=== PATIENT | female | born 1960 | race Caucasian/White ===

== ENCOUNTER 2019-01-19 09:29 | Emergency (ER) | payer BC, OTHER, SELFPAY ==
--- NOTE | 2019-01-19 10:41 | EDPHYS ---
Physician Documentation [facility] Name: Mary Lacy Age: 58 yrs Sex: Female : 1960 Arrival Date: 01/19/2019 Time: 09:31 Bed 18 Private MD: ED Physician Ifeanyi Valero HPI: 01/19 10:39 This 58 yrs old Female presents to ER via Ambulatory with complaints of Rash. pm1 10:39 The patient's rash thought to be caused by poison erin. The rash is located on the left pm1 arm and right arm and face. The rash can be described as raised. 10:39 Onset: The symptoms/episode began/occurred 3 day(s) ago. Associated signs and symptoms: pm1 Pertinent positives: itching, Pertinent negatives: fever, swelling of lips, swelling of throat, swelling of tongue, wheezing, shortness of breath, chest pain. Severity of symptoms: in the emergency department the symptoms are worse. Treatment given at home: Benadryl. The patient has not experienced similar symptoms in the past. The patient has not recently seen a physician, and does not have an established primary care provider. Historical: - Allergies: 10:03 No Known Allergies; ss - Home Meds: 10:03 None [Active]; ss - PMHx: 10:03 Hypertension; ss - PSHx: 10:03 None; ss - Immunization history:: Adult Immunizations up to date. - Social history:: Smoking status: Patient/guardian denies using tobacco, the patient reports quitting approximately 8 years ago. - Ebola Screening: : Patient denies exposure to infectious person Patient denies travel to an Ebola-affected area in the 21 days before illness onset. ROS: 10:39 Constitutional: Negative for fever, chills, and weight loss, Eyes: Negative for injury, pm1 pain, redness, and discharge, ENT: Negative for injury, pain, and discharge, Neck: Negative for injury, pain, and swelling, Cardiovascular: Negative for chest pain, palpitations, and edema, Respiratory: Negative for shortness of breath, cough, wheezing, and pleuritic chest pain, Abdomen/GI: Negative for abdominal pain, nausea, vomiting, diarrhea, and constipation, Back: Negative for injury and pain, MS/Extremity: Negative for injury and deformity. 10:39 Neuro: Negative for headache, weakness, numbness, tingling, and seizure. 10:39 Skin: Positive for rash, of the right arm and face and left arm. Exam: 10:39 Constitutional: This is a well developed, well nourished patient who is awake, alert, pm1 and in no acute distress. Head/Face: Normocephalic, atraumatic. Eyes: Pupils equal round and reactive to light, extra-ocular motions intact. Lids and lashes normal. Conjunctiva and sclera are non-icteric and not injected. Cornea within normal limits. Periorbital areas with no swelling, redness, or edema. ENT: Nares patent. No nasal discharge, no septal abnormalities noted. Tympanic membranes are normal and external auditory canals are clear. Oropharynx with no redness, swelling, or masses, exudates, or evidence of obstruction, uvula midline. Mucous membranes moist. Neck: Trachea midline, no thyromegaly or masses palpated, and no cervical lymphadenopathy. Supple, full range of motion without nuchal rigidity, or vertebral point tenderness. No Meningismus. Chest/axilla: Normal chest wall appearance and motion. Nontender with no deformity. No lesions are appreciated. Cardiovascular: Regular rate and rhythm with a normal S1 and S2. No gallops, murmurs, or rubs. Normal PMI, no JVD. No pulse deficits. Respiratory: Lungs have equal breath sounds bilaterally, clear to auscultation and percussion. No rales, rhonchi or wheezes noted. No increased work of breathing, no retractions or nasal flaring. Back: No spinal tenderness. No costovertebral tenderness. Full range of motion. 10:39 Skin: Appearance: normal except for affected area, consistent with contact dermatitis, on the right cheek, left cheek and chin and left arm and right arm. 10:39 Neuro: Orientation: is normal, Motor: is normal, moves all fours, Gait: is steady, at a normal pace, without difficulty. Vital Signs: 10:03 BP 213 / 81; Pulse 80; Resp 16; Temp 98.0(O); Pulse Ox 97% on R/A; Weight 77.11 kg; ss Height 5 ft. 2 in. (157.48 cm); Pain 8/10; 10:03 Body Mass Index 31.09 (77.11 kg, 157.48 cm) MDM: 10:08 Patient medically screened. pm1 10:39 Data reviewed: vital signs. Data interpreted: Pulse oximetry: on room air is 97 %. pm1 Interpretation: normal. Counseling: I had a detailed discussion with the patient and/or guardian regarding: the historical points, exam findings, and any diagnostic results supporting the discharge/admit diagnosis, the need for outpatient follow up, to return to the emergency department if symptoms worsen or persist or if there are any questions or concerns that arise at home. Administered Medications: 10:57 Drug: Decadron 10 mg Route: IM; Site: right gluteus; sv 11:27 Follow up: Response: No adverse reaction sv Disposition: 14:11 Co-signature as Attending Physician, Ifeanyi Valero MD. rn Disposition: 01/19/19 10:41 Discharged to Home. Impression: Irritant contact dermatitis. - Condition is Stable. - Discharge Instructions: Poison Erin Dermatitis. - Prescriptions for Medrol (Carloz) 4 mg Oral Tablets, Dose Pack - take 1 tablet by ORAL route as directed - follow package instructions; 1 packet. Bactrim DS 800- 160 mg Oral Tablet - take 1 tablet by ORAL route every 12 hours for 10 days; 20 tablet. - Work release form, Medication Reconciliation Form, Thank You Letter, Antibiotic Education, Prescription Opioid Use form. - Follow up: Emergency Department; When: As needed; Reason: Worsening of condition. Follow up: Private Physician; When: 2 - 3 days; Reason: Recheck today's complaints, Continuance of care, Re-evaluation by your physician. - Problem is new. - Symptoms have improved. Signatures: Kathie Lozano RN RN sv Nieto, Roman, MD MD rn Smirch, Shelby, RN RN ss Marinas, Patrick, NP ENDODONTIST pm1 Corrections: (The following items were deleted from the chart) 11:29 10:41 01/19/2019 10:41 Discharged to Home. Impression: Irritant contact dermatitis. sv Condition is Stable. Forms are Medication Reconciliation Form, Thank You Letter, Antibiotic Education, Prescription Opioid Use. Follow up: Emergency Department; When: As needed; Reason: Worsening of condition. Follow up: Private Physician; When: 2 - 3 days; Reason: Recheck today's complaints, Continuance of care, Re-evaluation by your physician. Problem is new. Symptoms have improved. pm1
--- NOTE | 2019-01-19 10:41 | ER ---
Nurse's Notes [facility] Name: Mary Lacy Age: 58 yrs Sex: Female : 1960 Arrival Date: 01/19/2019 Time: 09:31 Bed 18 Private MD: Diagnosis: Irritant contact dermatitis Presentation: 01/19 09:58 Presenting complaint: Patient states: Redness, swelling and itching to bilateral arms, ss face that began 3 days ago. Pt states, "I have poison ALETHA all around my house.". Transition of care: patient was not received from another setting of care. Onset of symptoms was December 17, 2018. Risk Assessment: Do you want to hurt yourself or someone else? Patient reports no desire to harm self or others. Initial Sepsis Screen: Does the patient have a suspected source of infection? No. Patient's initial sepsis screen is negative. Initial Sepsis Screen: Does the patient meet any 2 criteria? No. Patient's initial sepsis screen is negative. Care prior to arrival: None. 09:58 Method Of Arrival: Ambulatory ss 09:58 Acuity: IBIS 3 ss Historical: - Allergies: 10:03 No Known Allergies; ss - Home Meds: 10:03 None [Active]; ss - PMHx: 10:03 Hypertension; ss - PSHx: 10:03 None; ss - Immunization history:: Adult Immunizations up to date. - Social history:: Smoking status: Patient/guardian denies using tobacco, the patient reports quitting approximately 8 years ago. - Ebola Screening: : Patient denies exposure to infectious person Patient denies travel to an Ebola-affected area in the 21 days before illness onset. Screenin:50 Abuse screen: Denies threats or abuse. Denies injuries from another. Nutritional sv screening: No deficits noted. Tuberculosis screening: No symptoms or risk factors identified. Fall Risk None identified. Assessment: 10:50 General: Appears in no apparent distress. uncomfortable, well developed, Behavior is sv calm, cooperative, appropriate for age. Pain: Complains of pain in face, right arm and left arm Pain currently is 8 out of 10 on a pain scale. Quality of pain is described as itching. Neuro: Level of Consciousness is awake, alert, obeys commands, Oriented to person, place, time, situation, Gait is steady. Respiratory: Airway is patent Respiratory effort is even, unlabored, Respiratory pattern is regular, symmetrical. Derm: Skin is pink, warm \\T\\ dry. Rash noted that is itchy, red, raised, on face, right arm and left arm. 11:00 Reassessment: Pt waiting for IM shot time before discharge. sv 11:28 Reassessment: Patient appears in no apparent distress at this time. No changes from sv previously documented assessment. Patient and/or family updated on plan of care and expected duration. Pain level reassessed. Patient is alert, oriented x 3, equal unlabored respirations, skin warm/dry/pink. Vital Signs: 10:03 BP 213 / 81; Pulse 80; Resp 16; Temp 98.0(O); Pulse Ox 97% on R/A; Weight 77.11 kg; ss Height 5 ft. 2 in. (157.48 cm); Pain 8/10; 10:03 Body Mass Index 31.09 (77.11 kg, 157.48 cm) ED Course: 09:31 Patient arrived in ED. as 10:02 Triage completed. ss 10:03 Arm band placed on right wrist. ss 10:08 Doug Cosme NP is PHCP. pm1 10:08 Ifeanyi Valero MD is Attending Physician. pm1 10:27 Kathie Lozano RN is Primary Nurse. sv 10:50 Patient has correct armband on for positive identification. Bed in low position. Call sv light in reach. Adult w/ patient. Door closed. Head of bed elevated. 11:28 No provider procedures requiring assistance completed. Patient did not have IV access sv during this emergency room visit. Administered Medications: 10:57 Drug: Decadron 10 mg Route: IM; Site: right gluteus; sv 11:27 Follow up: Response: No adverse reaction sv Outcome: 10:41 Discharge ordered by MD. pm1 11:28 Discharged to home ambulatory, with friend. sv 11:28 Condition: stable 11:28 Discharge instructions given to patient, Instructed on discharge instructions, follow up and referral plans. medication usage, Demonstrated understanding of instructions, follow-up care, medications, Prescriptions given X 2. 11:29 Patient left the ED. sv Signatures: Kathie Lozano RN RN sv Martinez, Amelia as Smirch, Shelby, RN RN Marinas, Doug, ACCOUNTS PAYABLE SUPERVISOR ACCOUNTS PAYABLE SUPERVISOR pm1
[2019-01-19] MEDS ORDERED: dexAMETHasone 10 MG/ML VIAL ONE (10:53)
[2019-01-19 11:40] VITALS: BP 213/81; TEMP 98; O2SAT 97
== END 2019-01-19 11:29 | disposition home or self-care (01) ==
LOC: ER 09:29
DX: L24.9 Irritant contact dermatitis, unspecified cause (principal)
CPT/HCPCS: 96372; 99283; J1100

== ENCOUNTER 2019-03-08 15:57 | Emergency (ER) | payer OTHER ==
--- NOTE | 2019-03-08 16:35 | EDPHYS ---
Physician Documentation [facility] Name: Mary Lacy Age: 58 yrs Sex: Female : 1960 Arrival Date: 03/08/2019 Time: 15:58 Bed 8 Private MD: ED Physician Darwin Ross HPI: 03/09 12:38 This 58 yrs old Female presents to ER via Ambulatory with complaints of kdr Foreign Body In Throat - food. 12:38 The patient or guardian reports the patient has a suspected foreign body, of the kdr throat. The reported likely foreign body is a piece of metal. Onset: The symptoms/episode began/occurred acutely, suddenly, just prior to arrival. Current symptoms: Still has sensation of FB in esophagus. Treatment Prior to Arrival: none. The patient has experienced similar episodes in the past, a few times. The patient has not recently seen a physician, Had to see GI for a prior similar episode. Historical: - Allergies: 03/08 16:11 No Known Allergies; ss - PMHx: 16:11 Hypertension; ss - PSHx: 16:11 None; ss - Immunization history:: Adult Immunizations up to date. - Coronavirus screen:: The patient has NOT traveled to [place], [place], or [place] in the past 14 days. Proceed with normal triage process as indicated. - Social history:: Smoking status: Patient denies any tobacco usage or history of. - Ebola Screening: : Patient denies exposure to infectious person Patient denies travel to an Ebola-affected area in the 21 days before illness onset. ROS: 03/09 12:38 Constitutional: Negative for fever, chills, and weight loss, Eyes: Negative for injury, kdr pain, redness, and discharge, ENT: Negative for injury, pain, and discharge, Neck: Negative for injury, pain, and swelling, Cardiovascular: Negative for chest pain, palpitations, and edema, Respiratory: Negative for shortness of breath, cough, wheezing, and pleuritic chest pain, Abdomen/GI: Negative for abdominal pain, nausea, vomiting, diarrhea, and constipation, Back: Negative for injury and pain, : Negative for injury, bleeding, discharge, and swelling, MS/Extremity: Negative for injury and deformity, Skin: Negative for injury, rash, and discoloration, Neuro: Negative for headache, weakness, numbness, tingling, and seizure activity. Psych: Negative for depression, anxiety, suicide ideation, homicidal ideation, and hallucinations, Allergy/Immunology: Negative for hives, rash, and allergies, Endocrine: Negative for neck swelling, polydipsia, polyuria, polyphagia, and marked weight changes, Hematologic/Lymphatic: Negative for swollen nodes, abnormal bleeding, and unusual bruising. Exam: 12:38 Constitutional: This is a well developed, well nourished patient who is awake, alert, kdr and in no acute distress despite the sensation of a FB in her lower esophagus. Head/Face: Normocephalic, atraumatic. Eyes: Pupils equal round and reactive to light, extra-ocular motions intact. Lids and lashes normal. Conjunctiva and sclera are non-icteric and not injected. Cornea within normal limits. Periorbital areas with no swelling, redness, or edema. Neck: Trachea midline, no thyromegaly or masses palpated, and no cervical lymphadenopathy. Supple, full range of motion without nuchal rigidity, or vertebral point tenderness. No Meningismus. Chest/axilla: Normal chest wall appearance and motion. Nontender with no deformity. No lesions are appreciated. Cardiovascular: Regular rate and rhythm with a normal S1 and S2. No gallops, murmurs, or rubs. Normal PMI, no JVD. No pulse deficits. Respiratory: Lungs have equal breath sounds bilaterally, clear to auscultation and percussion. No rales, rhonchi or wheezes noted. No increased work of breathing, no retractions or nasal flaring. Abdomen/GI: Soft, non-tender, with normal bowel sounds. No distension or tympany. No guarding or rebound. No evidence of tenderness throughout. Back: No spinal tenderness. No costovertebral tenderness. Full range of motion. Skin: Warm, dry with normal turgor. Normal color with no rashes, no lesions, and no evidence of cellulitis. MS/ Extremity: Pulses equal, no cyanosis. Neurovascular intact. Full, normal range of motion. Neuro: Awake and alert, GCS 15, oriented to person, place, time, and situation. Cranial nerves II-XII grossly intact. Motor strength 5/5 in all extremities. Sensory grossly intact. Cerebellar exam normal. Normal gait. Psych: Awake, alert, with orientation to person, place and time. Behavior, mood, and affect are within normal limits. Vital Signs: 03/08 16:11 Pulse 88; Resp 16; Temp 97.1; Pulse Ox 99% on R/A; Weight 74.84 kg; Height 5 ft. 2 in. ss (157.48 cm); Pain 0/10; 16:12 BP 225 / 100; ss 16:11 Body Mass Index 30.18 (74.84 kg, 157.48 cm) MDM: 16:35 Patient medically screened. kdr 03/09 12:38 Data reviewed: vital signs, nurses notes. Counseling: I had a detailed discussion with kdr the patient and/or guardian regarding: the historical points, exam findings, and any diagnostic results supporting the discharge/admit diagnosis, the need for outpatient follow up. ED course: The patient made several attempts to drink and hold soda and did not have immediate improvement. On the third try, she cleared the FB and had immediate relief of her s/s. She was subsequently able to pass fluids without difficulty. She was discharged in stable condition. Administered Medications: No medications were administered Disposition: 03/08/19 16:35 Discharged to Home. Impression: Esophageal Foreign Body. - Condition is Stable. - Discharge Instructions: Swallowed Foreign Body, Adult, [id number], Foreign Body. - Medication Reconciliation Form, Thank You Letter form. - Follow up: Private Physician; When: 2 - 3 days; Reason: If symptoms return, Further diagnostic work-up, Recheck today's complaints, Continuance of care, Re-evaluation by your physician. - Problem is new. - Symptoms have improved. - Notes: As we discussed, should this occur again, immediately attempt to disloge the foreign body with the soda as we did in the Emergency Department Signatures: Darwin Ross MD MD [facility] Kena Suggs RN RN Tommy Barbosa RN RN ae4 Corrections: (The following items were deleted from the chart) 03/08 16:49 16:35 03/08/2019 16:35 Discharged to Home. Impression: Esophageal Foreign Body. ae4 Condition is Stable. Forms are Medication Reconciliation Form, Thank You Letter, Antibiotic Education, Prescription Opioid Use. Follow up: Private Physician; When: 2 - 3 days; Reason: If symptoms return, Further diagnostic work-up, Recheck today's complaints, Continuance of care, Re-evaluation by your physician. Problem is new. Symptoms have improved. kdr
--- NOTE | 2019-03-08 16:35 | ER ---
Nurse's Notes [facility] Name: Mary Lacy Age: 58 yrs Sex: Female : 1960 Arrival Date: 03/08/2019 Time: 15:58 Bed 8 Private MD: Diagnosis: Esophageal Foreign Body Presentation: 03/08 16:09 Presenting complaint: Patient states: Swallowed pieces of roast 1.5 hours ago and its ss stuck. "I was able to get a piece up, but I still feel it's stuck.". Transition of care: patient was not received from another setting of care. Onset of symptoms was March 08, 2019. Risk Assessment: Do you want to hurt yourself or someone else? Patient reports no desire to harm self or others. Initial Sepsis Screen: Does the patient meet any 2 criteria? No. Patient's initial sepsis screen is negative. Does the patient have a suspected source of infection? No. Patient's initial sepsis screen is negative. Care prior to arrival: None. 16:09 Method Of Arrival: Ambulatory ss 16:09 Acuity: IBIS 2 ss Historical: - Allergies: 16:11 No Known Allergies; ss - PMHx: 16:11 Hypertension; ss - PSHx: 16:11 None; ss - Immunization history:: Adult Immunizations up to date. - Coronavirus screen:: The patient has NOT traveled to [place], [place], or [place] in the past 14 days. Proceed with normal triage process as indicated. - Social history:: Smoking status: Patient denies any tobacco usage or history of. - Ebola Screening: : Patient denies exposure to infectious person Patient denies travel to an Ebola-affected area in the 21 days before illness onset. Screenin:39 Abuse screen: Denies threats or abuse. Nutritional screening: No deficits noted. ae4 Tuberculosis screening: No symptoms or risk factors identified. Fall Risk None identified. Assessment: 16:35 Reassessment: Reassessment: Provider at bedside, order to provide carbonated beverage ae4 PO. Patient vomited and spit up mucus and what appeared to be food. Patient states she feels like the piece of roast "went down" . 16:36 General: Appears uncomfortable, slender, Behavior is cooperative, anxious. Pain: ae4 Complains of pain in suprasternal notch. Neuro: Level of Consciousness is awake, alert, obeys commands, Oriented to person, place, time, situation, Appropriate for age. Cardiovascular: Patient's skin is warm and dry. Respiratory: Airway is patent Respiratory effort is even, unlabored, Respiratory pattern is regular. GI: Reports nausea, Feeling as though she has food stuck in her throat and esophagus area. : No signs and/or symptoms were reported regarding the genitourinary system. EENT: No signs and/or symptoms were reported regarding the EENT system. Derm: No signs and/or symptoms reported regarding the dermatologic system. Musculoskeletal: Vital Signs: 16:11 Pulse 88; Resp 16; Temp 97.1; Pulse Ox 99% on R/A; Weight 74.84 kg; Height 5 ft. 2 in. ss (157.48 cm); Pain 0/10; 16:12 BP 225 / 100; ss 16:11 Body Mass Index 30.18 (74.84 kg, 157.48 cm) ED Course: 15:58 Patient arrived in ED. as 16:11 Triage completed. ss 16:11 Arm band placed on left wrist. 16:13 Tommy Barbosa, RN is Primary Nurse. ae4 16:20 Darwin Ross MD is Attending Physician. kdr 16:37 Bed in low position. Call light in reach. Adult w/ patient. ae4 16:48 No provider procedures requiring assistance completed. Patient did not have IV access ae4 during this emergency room visit. Administered Medications: No medications were administered Outcome: 16:35 Discharge ordered by . kdr 16:48 Discharged to home ambulatory. ae4 16:48 Condition: improved 16:48 Discharge instructions given to patient, Instructed on discharge instructions, follow up and referral plans. Demonstrated understanding of instructions. 16:49 Patient left the ED. ae4 Signatures: Darwin Ross MD MD kdr Martinez, Amelia as Smirch, Shelby, RN RN Tommy Barbosa, CM RN ae4 Corrections: (The following items were deleted from the chart) 16:13 16:09 Acuity: IBIS 3 [facility]
[2019-03-08 16:53] VITALS: TEMP 97.1; O2SAT 99
[2019-03-08 16:56] VITALS: BP 225/100
== END 2019-03-08 16:49 | disposition home or self-care (01) ==
LOC: ER 15:57
DX: T18.128A Food in esophagus causing other injury, initial encounter (principal); X58.XXXA Exposure to other specified factors, initial encounter; Y93.9 Activity, unspecified; Y92.9 Unspecified place or not applicable
CPT/HCPCS: 99281

== ENCOUNTER 2024-01-25 11:05 | Emergency (ER) | payer OTHER ==
--- OUTSIDE RECORDS SUMMARY | 2024-01-25 11:10 | XMS REPORT | Continuity of Care Document ---
Author Name Unknown Address [address] [facility] [place] [address] [facility] thconnect Address [address] [facility] [facility] [place] [address] Care Team Providers Care Car Porter Name Role Phone Anais Michaels MD Primary Care Physici an OSMAN BRUNER Attending Clinician Unavailable MD JEANINE Attending Clinician Unavailab le LAB90 Attending Clinician Unavailable STAN BROWN Attending Clinician Unavailab BARRY Sheehan Attending Clinician Unava ilELKE Lennon Attending Clinician Unavailable YOSEPH ROGERS Attending Clinician Unava ilnunu MEDLEY JEFF MARSHA Attending Clinician UnavailFLOR Jenkins Attending Clinician Unavailable XANDER STAPLES Attending Clinician Unavailable ANAIS MICHAELS Attending Clinician Ally vailable Doctor Unassigned, [place] Attending Clinician U Anais Yang MD Attending Clinician Payers Payer Name Policy Type Policy Number Effective Date Expirati on Date Source [facility] ON 9 [id number] 2022 00:00:00 [facility] [id number] 2022 00:00:00 Problems Condition Name Condition Details Condition Category Status Onset Date Resolution Date Last Treatment Date Treating Clinician Comments Source DM type 2 with diabetic mixed hyperlipid emia (multi HCC) DM type 2 with diabetic mixed hyperlipid emia (multi HCC) Disease Active 9-17 00:00: 00 Sri Hamilton - Externa l Mild major depression Mild major depression Disease Active 6-30 00:00: 00 Sri Jamesold - Externa l Asthma (HHS-HCC) Asthma (HHS-HCC) Disease Active 3-28 00:00: 00 Sri Jamesold - Externa l HTN (hypertens ion) HTN (hypertens ion) Disease Active 1- 00:00: 00 [facility] HLD (hyperlipi demia) HLD (hyperlipi demia) Disease Active 02-15 00:00: 00 [facility] Prediabete s Prediabete s Disease Active 02-15 00:00: 00 [facility] Allergies, Adverse Reactions, Alerts Allergy Name Allergy Type Status Severity Reaction(s) Onset Date Inactive Date Treating Clinician Comments Source NO KNOWN ALLERGIE S Drug Class Active [facility] Social History Social Habit Start Date Stop Date Quantity Comments Source History SDOH Alcohol Binge Sri Hamilton - External ASSERTION Not Sri Hamilton - External Gender identity Mariia pena Seybold - External Sexual orientation K elsecheri Seybold - External History of tobacco use Cigarette Smoker Sri bardales - External History SDOH Alcohol Frequency Sri aguilera - External History SDOH Alcohol Std Drinks Sri Jimenes ybcatia - External Alcoholic beverage intake 2023-12-26 00:00:00 2023-12-26 00:00:00 Ex-drinker (finding) Sri Jamesold - External Alcohol intake 2023-05-17 00:00:00 2023-05-17 00:00:00 Ex-drinker (finding) Sri Hamilton - External History of Social function 2022-10-29 00:00:00 2022-10-29 00:00:00 Sri Hamilton - External Alcohol Comment 2022-09-18 00:00:00 2022-09-18 00:00:00 social Sri Hamilton - External Tobacco use and exposure 2022-08-10 00:00:00 2022-08-10 00:00:00 Former smokeless tobacco user Sri Jimeneswinniecatia - External Cigarettes smoked current (pack per day) - Reported 2022-08-10 00:00:00 2022-08-10 00:00:00 Sri Sewinniecatia - External Cigarette pack-years 2022-08-10 00:00:00 2022-08-10 00:00:00 Sri Sewinniecatia - External Tobacco Comment 2022-07-31 00:00:00 2022-07-31 00:00:00 stopped 11 years ago Sri Jimeneswinniecatia - External Sex 2022-03-28 21:28:42 2022-03-28 21:28:42 Female (finding) Sri Sewinniecatia - External Exposure to SARS-CoV-2 (event) 2022-02-05 00:00:00 2022-02-15 08:38:00 Not sure [facility] Sex assigned at 1960 00:00:00 1960 00:00:00 Sri Hamilton - External Smoking Status Start Date Stop Date Source Ex-smoker 2022-08-10 00:00:00 2022-08-10 00:00:00 Tyson rashadcheri Joy - External Medications Ordered Medication Name Filled Medication Name Start Date Stop Date Current Medication? Ordering Clinician Indication Dosage Frequency Signature (SIG) Comments Components Source Cetirizine HCl (ZyrTEC Allergy) 10 MG oral TABLET DISPERSIBLE 2023-02 00:00: 00 Yes [id number] 1{tbl} QD Take 1 tablet by mouth daily. Sri galvez Azithromyci n 250 MG oral Tablet 2023-02 00:00: 00 12-31 05:59 :00 Yes [id number] Take 2 tablets by mouth on day 1 then 1 tablet by mouth daily for 4 days thereafter .. Sri galvez Topiramate 50 MG oral Tablet 2023-02 00:00: 00 Yes [id number] 50mg Q.5D Take 1 tablet by mouth twice daily Sri galvez Trulicity 1.5 MG/0.5ML subcutaneou s Solution Pen-injecto r 2023-02 0-07 00:00: 00 Yes [id number] 3 Q1W inject 1 syringe subcutaneo usly once a week Sri galvez Atorvastati n Calcium 40 MG oral Tablet 2023-02 0-02 00:00: 00 Yes [id number] 40mg take 1 tablet by mouth at bedtime Sri galvez ALBUTEROL HFA 108 (90 Base) MCG/ACT IN AERS 8- 00:00: 00 Yes [id number] 2{puff} Q.25D inhale 2 puffs by mouth every 6 hours as needed for wheezing Sri galvez Indomethaci n 50 MG oral Capsule - 00:00: 00 Yes [id number] Take one tablet po every 8 hours with food for 3 days for gout flares. Reduce dose as symptoms improve. Discontinu e a few days after resolution of clinical signs (usual total duration: 5 to 7 days). Sri galvez Atorvastati n Calcium 40 MG oral Tablet 7- 00:00: 00 Yes [id number] 40mg take 1 tablet by mouth at bedtime Sri galvez hydroCHLORO thiazide 12.5 MG oral Capsule - 00:00: 00 Yes [id number] 12.5mg QD Take 1 capsule by mouth once daily Sri galvez Dulaglutide (Trulicity) 1.5 MG/0.5ML subcutaneou s Solution Pen-injecto r 5- 00:00: 00 Yes [id number] 3 1.5mg Q1W Inject 1.5 mg into the skin once a week. Sri galvez Albuterol HFA 108 (90 Base) MCG/ACT IN AERS 4-24 00:00: 00 Yes [id number] 2{puff} Q.25D Inhale 2 puffs into the lungs every 6 hours as needed for wheezing. Sri galvez Topiramate 50 MG oral Tablet 4-05 00:00: 00 Yes [id number] 50mg Q.5D Take 1 tablet (50 mg total) by mouth 2 times daily. Sri galvez Lisinopril 5 MG oral Tablet 05-15 00:00: 00 Yes [id number] 5mg QD Take 1 tablet by mouth once daily Sri galvez Dulaglutide (Trulicity) 0.75 MG/0.5ML subcutaneou s Solution Pen-injecto r - 00:00: 00 05-16 00:00 :00 No [id number] 3 .75mg Inject 0.75 mg into the skin once a week. Sri galvez Topiramate 50 MG oral Tablet 05-12 00:00: 00 05-16 00:00 :00 No [id number] 50mg Take 1 tablet (50 mg total) by mouth 2 times daily. Sri galvez Trulicity 1.5 MG/0.5ML subcutaneou s Solution Pen-injecto r 04-14 00:00: 00 Yes 1.5mg Inject 1.5 mg into the skin once a week. Sri galvez hydroCHLORO thiazide 12.5 MG oral Capsule 04-11 00:00: 00 Yes [id number] 12.5mg Take 1 capsule by mouth once daily Sri galvez Trulicity 1.5 MG/0.5ML subcutaneou s Solution Pen-injecto r 03-22 00:00: 00 Yes [id number] 3 1.5mg Inject 1.5 mg into the skin once a week. Sri galvez Sertraline HCl 50 MG oral Tablet 03-22 00:00: 00 Yes [id number] 50mg QD Take 1 tablet (50 mg total) by mouth daily. Sri galvez Sertraline HCl 25 MG oral Tablet 2- 00:00: 00 03-22 00:00 :00 No [id number] 25mg Take 1 tablet by mouth once daily Sri galvez Lisinopril 5 MG oral Tablet - 00:00: 00 Yes [id number] 5mg Take 1 tablet (5 mg total) by mouth daily. Sri galvez Topiramate 50 MG oral Tablet 03-13 00:00: 00 Yes [id number] 50mg Take 1 tablet by mouth twice daily Sri galvez Sertraline HCl 50 MG oral Tablet 02-20 00:00: 00 03-22 00:00 :00 No 50mg Take 1 tablet (50 mg total) by mouth daily. Sri galvez Trulicity 0.75 MG/0.5ML subcutaneou s Solution Pen-injecto r 02-19 00:00: 00 Yes [id number] 3 .75mg Inject 0.75 mg into the skin once a week. Sri galvez Lisinopril 5 MG oral Tablet 02-19 00:00: 00 Yes [id number] 5mg Take 1 tablet (5 mg total) by mouth daily. Sri galvez Sertraline HCl 25 MG oral Tablet 02-19 00:00: 00 Yes [id number] 25mg Take 1 tablet (25 mg total) by mouth daily. Sri galvez Topiramate 50 MG oral Tablet 02-13 00:00: 00 Yes [id number] 50mg Take 1 tablet (50 mg total) by mouth 2 times daily. Sri galvez Albuterol HFA 108 (90 Base) MCG/ACT IN AERS 2022-02 00:00: 00 Yes [id number] 2{puff} Q.25D Inhale 2 puffs into the lungs every 6 hours as needed for wheezing. Sri galvez hydroCHLORO thiazide 12.5 MG oral Capsule 2022-02 00:00: 00 Yes [id number] 12.5mg Take 1 capsule (12.5 mg total) by mouth daily. Sri galvez Topiramate 50 MG oral Tablet 2022-02 0 00:00: 00 Yes [id number] 50mg Take 1 tablet (50 mg total) by mouth 2 times daily. Sri galvez Metformin HCl 500 MG oral Tablet 2022-02 0- 00:00: 00 03-22 00:00 :00 No [id number] 3 500mg Take 1 tablet (500 mg total) by mouth in the morning and 1 tablet (500 mg total) in the evening. Take with meals. Sri galvez Topiramate 25 MG oral Tablet 2022-02 0-03 00:00: 00 11-20 00:00 :00 No [id number] 25mg Take 1 tablet by mouth twice daily Sri galvez Metformin HCl 500 MG oral Tablet 9 00:00: 00 11-20 00:00 :00 No [id number] 3 500mg Take 1 tablet (500 mg total) by mouth in the morning and 1 tablet (500 mg total) in the evening. Take with meals. Sri galvez hydroCHLORO thiazide 12.5 MG oral Capsule 10-23 00:00: 00 Yes [id number] 12.5mg Take 1 capsule (12.5 mg total) by mouth daily. Sri galvez Topiramate 25 MG oral Tablet 10-23 00:00: 00 Yes [id number] 25mg Take 1 tablet (25 mg total) by mouth 2 times daily. Sri galvez Albuterol HFA 108 (90 Base) MCG/ACT IN AERS 08-17 00:00: 00 Yes [id number] 2{puff} Q.25D Inhale 2 puffs into the lungs every 6 hours as needed for wheezing Sri galvez Atorvastati n Calcium 40 MG oral Tablet 08-17 00:00: 00 Yes [id number] 40mg Take 1 tablet (40 mg total) by mouth at bedtime Sri galvez LISINOPRIL- HCTZ 10-12.5 MG oral Tablet 08-17 00:00: 00 02-19 00:00 :00 No [id number] 1{tbl} Take 1 tablet by mouth daily Sri galvez Sertraline HCl 50 MG oral Tablet 08-17 00:00: 00 02-19 00:00 :00 No [id number] 50mg Take 1 tablet (50 mg total) by mouth daily Sri galvez hydroCHLORO thiazide 25 MG oral Tablet 08-10 07:53: 54 Yes 25mg Take 1 tablet (25 mg total) by mouth daily 1/2 tablet daily Sri galvez Sertraline HCl 50 MG oral Tablet 08-02 00:00: 00 Yes [id number] Take 1 tablet by mouth once daily Sri galvez Atorvastati n Calcium 40 MG oral Tablet 08-02 00:00: 00 Yes [id number] TAKE 1 TABLET BY MOUTH AT BEDTIME Sri galvez LISINOPRIL- HCTZ 10-12.5 MG oral Tablet 08-02 00:00: 00 Yes [id number] Take 1 tablet by mouth once daily Sri galvez Na Sulfate-K Sulfate-Mg Sulf (SUPREP BOWEL PREP KIT) 17.5-3.13-1 .6 GM/177ML oral Solution 07-31 00:00: 00 Yes [id number] Instructio ns provided to patient. Follow instructio ns provided by provider. Sri galvez Atorvastati n Calcium 40 MG oral Tablet 05-08 00:00: 00 Yes [id number] 40mg Take 1 tablet (40 mg total) by mouth at bedtime Sri galvez LISINOPRIL- HCTZ 10-12.5 MG oral Tablet 05-08 00:00: 00 Yes [id number] 1{tbl} Take 1 tablet by mouth daily Sri galvez Sertraline HCl (Zoloft) 50 MG oral Tablet 05-08 00:00: 00 Yes [id number] 50mg Take 1 tablet (50 mg total) by mouth daily Sri galvez Albuterol HFA 108 (90 Base) MCG/ACT IN AERS 05-08 00:00: 00 Yes [id number] 2{puff} Q.25D Inhale 2 puffs into the lungs every 6 hours as needed for wheezing Sri galvez hydroCHLORO thiazide 25 MG oral Tablet 3-24 00:00: 00 05-08 00:00 :00 No 25mg Take 25 mg by mouth every morning Sri galvez Sertraline HCl 25 MG oral Tablet 2-01 00:00: 00 05-08 00:00 :00 No TAKE 1/2 (ONE-HALF) TABLET BY MOUTH IN THE MORNING Sri galvez hydroCHLORO thiazide 25 mg tablet 1-05 00:00: 00 Yes [id number] 25mg Take 1 tablet by mouth in the morning. [facility] SERTraline 25 mg tablet 02-15 00:00: 00 Yes [id number] 12.5mg Take 0.5 tablets by mouth in the morning. [facility] Atorvastati n Calcium 40 MG oral Tablet 02-15 00:00: 00 05-08 00:00 :00 No 40mg Take 40 mg by mouth at bedtime Sri galvez Immunizations Ordered Immunization Name Filled Immunization Name Date Status Comments Source Influenza Virus Vaccine, Quad, Egg Free 2022-10-10 00:00:00 Completed Sri Hamilton - External Influenza Virus Vaccine, No Preserv, age 6 months and up 2021-11-09 00:00:00 Completed Sri Jamesold - External Influenza Virus Vaccine, No Preserv, age 6 months and up 2021-11-09 00:00:00 Completed Sri Jamesold - External Influenza Virus Vaccine, No Preserv, age 6 months and up 2021-11-09 00:00:00 Completed Sri Jamesold - External Influenza Virus Vaccine, No Preserv, age 6 months and up 2021-11-09 00:00:00 Completed Sri Seybold - External Influenza Virus Vaccine, No Preserv, age 6 months and up 2021-11-09 00:00:00 Completed Sri Jimenesybold - External Influenza Virus Vaccine Quad .5 mL IM 6+ MO 2021-11-09 00:00:00 Completed [facility] Influenza Virus Vaccine Quad .5 mL IM 6+ MO 2021-11-09 00:00:00 Completed [facility] SARS-COV-2 COVID-19 PFIZER VACCINE 2020-12-12 00:00:00 Completed [facility] SARS-COV-2 COVID-19 PFIZER VACCINE 2020-12-12 00:00:00 Completed [facility] SARS-COV-2 COVID-19 PFIZER VACCINE 2020-05-19 00:00:00 Completed [facility] SARS-COV-2 COVID-19 PFIZER VACCINE 2020-05-19 00:00:00 Completed [facility] SARS-COV-2 COVID-19 PFIZER VACCINE 2020-04-27 00:00:00 Completed [facility] SARS-COV-2 COVID-19 PFIZER VACCINE 2020-04-27 00:00:00 Completed [facility] Influenza Virus Vaccine, No Preserv, age 6 months and up Unknown Completed Sri Seybold - External Influenza Virus Vaccine, Quad, Egg Free Unknown Completed Sri Seybold - External Pneumococcal Vaccine, Conjugate 20 Unknown Completed Sri Seybold - External RSV, Arexvy Unknown Completed Sri S eybold - External Influenza Virus Vaccine, No Preserv, age 6 months and up Unknown Completed Sri Seybold - External Influenza Virus Vaccine, Quad, Egg Free Unknown Completed Sri Seybold - External Pneumococcal Vaccine, Conjugate 20 Unknown Completed Sri Seybold - External RSV, Arexvy Unknown Completed Sri S eybold - External Influenza Virus Vaccine, No Preserv, age 6 months and up Unknown Completed Sri Seybold - External Influenza Virus Vaccine, Quad, Egg Free Unknown Completed Sri Seybold - External Pneumococcal Vaccine, Conjugate 20 Unknown Completed Sri Seybold - External RSV, Arexvy Unknown Completed Sri S eybold - External Influenza Virus Vaccine, No Preserv, age 6 months and up Unknown Completed Sri Seybold - External Influenza Virus Vaccine, Quad, Egg Free Unknown Completed Sri Seybold - External Pneumococcal Vaccine, Conjugate 20 Unknown Completed Sri Seybold - External RSV, Arexvy Unknown Completed Sri S eybold - External Influenza Virus Vaccine, No Preserv, age 6 months and up Unknown Completed Sri Seybold - External Influenza Virus Vaccine, Quad, Egg Free Unknown Completed Sri Seybold - External Pneumococcal Vaccine, Conjugate 20 Unknown Completed Sri Seybold - External RSV, Arexvy Unknown Completed Sri penabold - External Influenza Virus Vaccine, No Preserv, age 6 months and up Unknown Completed Sri Jimenesybold - External Influenza Virus Vaccine, Quad, Egg Free Unknown Completed Sri Jimenesybold - External Pneumococcal Vaccine, Conjugate 20 Unknown Completed Sri Jimenesybold - External RSV, Arexvy Unknown Completed Sri penabold - External Influenza Virus Vaccine, Egg Free Unknown Completed Sri Sue bold - External Vital Signs Vital Name Observation Time Observation Value Comments S ource Body height 2023-12-26 15:29:00 160 cm Mariia ey Seybold - External Body weight 2023-12-26 15:29:00 71.215 kg Mariia ey Seybold - External BMI 2023-12-26 15:29:00 27.81 kg/m2 Mariia ey Seybold - External Systolic blood pressure 2023-05-17 15:50:00 124 mm[Hg] Sri Seybo ld - External Diastolic blood pressure 2023-05-17 15:50:00 66 mm[Hg] Sri Seybo ld - External Heart rate 2023-05-17 15:50:00 73 /min Kelse y Seybold - External Body temperature 2023-05-17 15:50:00 35.83 Ann Sri Seybold - External Respiratory rate 2023-05-17 15:50:00 14 /min Sri Seybold - External Body height 2023-05-17 15:50:00 160 cm Mariia ey Seybold - External Body weight 2023-05-17 15:50:00 68.493 kg Mariia ey Seybold - External BMI 2023-05-17 15:50:00 26.75 kg/m2 Mariia ey Seybold - External Systolic blood pressure 2023-03-22 16:21:00 110 mm[Hg] Sri Seybo ld - External Diastolic blood pressure 2023-03-22 16:21:00 72 mm[Hg] Sri Seybo ld - External Heart rate 2023-03-22 16:21:00 86 /min Kelse y Seybold - External Body temperature 2023-03-22 16:21:00 35.89 Ann Sri Seybold - External Respiratory rate 2023-03-22 16:21:00 14 /min Sri Seybold - External Body height 2023-03-22 16:21:00 160 cm Mariia ey Seybold - External Body weight 2023-03-22 16:21:00 72.122 kg Mariia ey Seybold - External BMI 2023-03-22 16:21:00 28.17 kg/m2 Mariia ey Seybold - External Systolic blood pressure 2023-02-19 15:31:00 136 mm[Hg] Sri Seybo ld - External Diastolic blood pressure 2023-02-19 15:31:00 70 mm[Hg] Sri Seybo ld - External Heart rate 2023-02-19 15:31:00 77 /min Kelse y Seybold - External Body temperature 2023-02-19 15:31:00 35.72 Ann Sri Seybold - External Respiratory rate 2023-02-19 15:31:00 14 /min Sri Seybold - External Body height 2023-02-19 15:31:00 160 cm Mariia ey Seybold - External Body weight 2023-02-19 15:31:00 71.215 kg Mariia ey Seybold - External BMI 2023-02-19 15:31:00 27.81 kg/m2 Mariia ey Seybold - External Systolic blood pressure 2022-11-20 14:05:00 124 mm[Hg] Sri Seybo ld - External Diastolic blood pressure 2022-11-20 14:05:00 68 mm[Hg] Sri Seybo ld - External Heart rate 2022-11-20 14:05:00 78 /min Kelse y Seybold - External Body temperature 2022-11-20 14:05:00 35.89 Ann Sri Seybold - External Respiratory rate 2022-11-20 14:05:00 14 /min Sri Seybold - External Body height 2022-11-20 14:05:00 160 cm Mariia ey Seybold - External Body weight 2022-11-20 14:05:00 76.658 kg Mariia ey Seybold - External BMI 2022-11-20 14:05:00 29.94 kg/m2 Mariia ey Seybold - External Systolic blood pressure 2022-10-23 20:15:00 146 mm[Hg] Sri Seybo ld - External Diastolic blood pressure 2022-10-23 20:15:00 80 mm[Hg] Sri Seybo ld - External Heart rate 2022-10-23 20:15:00 82 /min Kelse y Seybold - External Body temperature 2022-10-23 20:15:00 36.56 Ann Sri Seybold - External Respiratory rate 2022-10-23 20:15:00 14 /min Sri Seybold - External Body height 2022-10-23 20:15:00 160 cm Mariia ey Seybold - External Body weight 2022-10-23 20:15:00 80.74 kg Mariia ey Seybold - External BMI 2022-10-23 20:15:00 31.53 kg/m2 Mariia ey Seybold - External Systolic blood pressure 2022-08-10 12:49:00 126 mm[Hg] Sri Seybo ld - External Diastolic blood pressure 2022-08-10 12:49:00 64 mm[Hg] Sri Seybo ld - External Heart rate 2022-08-10 12:49:00 68 /min Kelse y Seybold - External Body temperature 2022-08-10 12:49:00 35.39 Ann Sri Seybold - External Respiratory rate 2022-08-10 12:49:00 14 /min Sri Seybold - External Body height 2022-08-10 12:49:00 160 cm Mariia ey Seybold - External Body weight 2022-08-10 12:49:00 78.472 kg Mariia ey Seybold - External BMI 2022-08-10 12:49:00 30.65 kg/m2 Mariia ey Seybold - External Systolic blood pressure 2022-07-31 20:18:00 130 mm[Hg] Sri Seybo ld - External Diastolic blood pressure 2022-07-31 20:18:00 70 mm[Hg] Sri Seybo ld - External Heart rate 2022-07-31 20:18:00 62 /min Kelse y Seybold - External Body temperature 2022-07-31 20:18:00 36.11 Ann Sri Seybold - External Respiratory rate 2022-07-31 20:18:00 16 /min Sri Seybold - External Body height 2022-07-31 20:18:00 160 cm Mariia ey Seybold - External Body weight 2022-07-31 20:18:00 75.751 kg Mariia ey Seybold - External BMI 2022-07-31 20:18:00 29.58 kg/m2 Mariia ey Seybold - External Systolic blood pressure 2022-05-08 13:38:00 142 mm[Hg] Sri Seybo ld - External Diastolic blood pressure 2022-05-08 13:38:00 84 mm[Hg] Sri Seybo ld - External Heart rate 2022-05-08 13:38:00 77 /min Bruno y Seybold - External Body temperature 2022-05-08 13:38:00 36 Ann Sri Seybold - External Respiratory rate 2022-05-08 13:38:00 14 /min Sri Jimenesybold - External Body height 2022-05-08 13:38:00 160 cm Mariia ey Seybold - External Body weight 2022-05-08 13:38:00 76.204 kg Mariia ey Seybold - External BMI 2022-05-08 13:38:00 29.76 kg/m2 Mariia ey Seybold - External Systolic blood pressure 2022-02-15 14:56:00 178 mm[Hg] [place] [facility] Diastolic blood pressure 2022-02-15 14:56:00 82 mm[Hg] [facility] Heart rate 2022-02-15 14:55:00 70 /min [facility] 2022-02-15 14:55:00 36.89 Ann [facility] Body height 2022-02-15 14:55:00 160 cm [facility] Body weight 2022-02-15 14:55:00 73.483 kg [facility] BMI 2022-02-15 14:55:00 28.70 kg/m2 [facility] Oxygen saturation in Arterial blood by Pulse oximetry 2022-02-15 14:55:00 98 /min [facility] Procedures Procedure Date / Time Performed Performing Clinicia n Source EXTERNAL PROVIDER RECORDS 2022-03-16 06:01:00 Doctor Unassigned, [place] [facility] Encounters Start Date/Time End Date/Time Encounter Type Admission Type Attending [facility] Care Department Encounter ID Source 2024-02-13 09:30:00 2024-02-13 09:30:00 Outpatient OSMAN BRUNER [id number] Sri Joy 2024-01-11 00:00:00 2024-01-11 00:00:00 Outpatient OSMAN BRUNER [id number] Sri Joy 2023-12-30 00:00:00 2023-12-30 00:00:00 Outpatient OSMAN BRUNER [id number] Sri Joy 2023-12-27 00:00:00 2023-12-27 00:00:00 Outpatient MD SRI FELICIANO [id number] Sri Joy 2023-12-26 12:45:00 2023-12-26 12:45:00 Outpatient SRI CARIAS [id number] Sri Joy 2023-12-26 10:45:00 2023-12-26 10:45:00 Outpatient LAB90 SRI CARIAS [id number] Sri Joy 2023-12-26 09:30:00 2023-12-26 09:30:00 Outpatient OSMAN BRUNER [id number] Sri Joy 2023-12-26 00:00:00 2023-12-26 00:00:00 Outpatient OSMAN BRUNER [id number] Sri Joy 2023-12-26 00:00:00 2023-12-26 00:00:00 Outpatient OSMAN BRUNER [id number] Sri winniecatia 2023-12-26 00:00:00 2023-12-26 00:00:00 Outpatient SRI CARIAS [id number] Sri winniecatia 2023-12-26 00:00:00 2023-12-26 00:00:00 Outpatient SRI CARIAS [id number] Sri Hamilton 2023-12-22 00:00:00 2023-12-22 00:00:00 Outpatient HUNDL, OSMAN CARIAS [id number] Sri ybcatia 2023-12-19 11:00:00 2023-12-19 11:00:00 Outpatient SRI CARIAS [id number] Sri ybcatia 2023-12-04 00:00:00 2023-12-04 00:00:00 Outpatient HUNDL, OSMAN CARIAS [id number] Sri Jimenesybcatia 2023-11-17 00:00:00 2023-11-17 00:00:00 Outpatient HUNDL, [facility]AN CARIAS [id number] [facility]23-[facility]-13 00:00:00 2023-11-13 00:00:00 Outpatient HUNDL, OSMAN CARIAS [id number] [facility] 2023-11-13 00:00:00 2023-11-13 00:00:00 Out[facility] HUNDL[facility] [id number] [facility]23-10-09 00:00:00 2023-10-09 00:00:00 Outpatient HUNDL, OSMAN CARIAS [id number] [facility] 2023-10-08 00:00:00 2023-10-08 00:00:00 Outpatient HUNDL, OSMAN CARIAS [id number] [facility] 2023-09-06 00:00:00 2023-09-06 00:00:00 Outpatient HUNDL, OSMAN CARIAS [id number] [facility] 2023-08-28 10:50:00 2023-08-28 10:50:00 Outpatient LAB90 S[facility] CARI[facility] [id number] [facility] 2023-08-28 09:15:00 2023-08-28 09:15:00 Outpatient KEVINSTAN [id number] [facility] 2023-08-14 00:00:00 2023-08-14 00:00:00 Outpatient HUNDL, OSMAN CARIAS [id number] [facility] 2023-07-12 00:00:00 2023-07-12 00:00:00 Outpatient HUNDL, OSMAN CARIAS [id number] Sri Jimenesybcatia 2023-06-20 11:00:00 2023-06-20 11:00:00 Outpatient SRI CARIAS [id number] Sri Jimenesybcatia 2023-06-20 00:00:00 2023-06-20 00:00:00 Outpatient HUNDL, OSMAN SRI CARIAS [id number] Sri Jimenesybcatia 2023-06-11 00:00:00 2023-06-11 00:00:00 Outpatient HUNDL, OSMAN SRI CARIAS [id number] Sri Seybcatia 2023-06-07 13:15:00 2023-06-07 13:15:00 Outpatient SRI CARIAS [id number] Sri ybcatia 2023-06-05 00:00:00 2023-06-05 00:00:00 Outpatient LEILA BARRY SRI CARIAS [id number] Sri Seybcatia 2023-05-23 08:35:00 2023-05-23 08:35:00 Outpatient LAB90 [facility] CARIAS [id number] [facility] 2023-05-21 00:00:00 2023-05-21 00:00:00 Outpatient HUNDL, OSMAN SRI CARIAS [id number] Sri Seybold 2023-05-17 11:00:00 2023-05-17 11:00:00 Outpatient HUNDL, OSMAN SRI CARIAS [id number] Sri Seybold 2023-05-16 00:00:00 2023-05-16 00:00:00 Outpatient HUNDL, OSMAN CARIAS [id number] [facility] 2023-05-14 00:00:00 2023-05-14 00:00:00 Outpatient HUNDL, OSMAN CARIAS [id number] [facility] 2023-05-13 00:00:00 2023-05-13 00:00:00 Outpatient HUNDL, OSMAN CARIAS [id number] [facility] 2023-04-19 11:00:00 2023-04-19 11:00:00 Outpatient HUNDL, OSMAN CARIAS [id number] [facility] 2023-04-19 00:00:00 2023-04-19 00:00:00 Outpatient HUNDL, OSMAN SRI CARIAS [id number] [facility] 2023-04-16 00:00:00 2023-04-16 00:00:00 Outpatient HUNDL, OSMAN SRI CARIAS [id number] [facility] 2023-04-15 00:00:00 2023-04-15 00:00:00 Outpatient HUNDL, OSMAN CARIAS [id number] [facility] 2023-04-13 00:00:00 2023-04-13 00:00:00 Outpatient HUNDL, OSMAN SRI CARIAS [id number] [facility] 2023-04-12 00:00:00 2023-04-12 00:00:00 Outpatient HUNDL, OSMANCheri CARIAS [id number] [facility] 2023-04-04 08:00:00 2023-04-04 08:00:00 [facility] [id number] [facility] 10:30:00 2023-03-22 10:30:00 Outpatient HUNDL, OSMAN SRI [facility] [id number] [facility]23[facility]22 00:00:00 2023-03-22 00:00:00 Outpatient HUNDL, OSMAN SRI CARIAS [id number] [facility] 2023-03-21 09:45:00 2023-03-21 09:45:00 Outpatient SRI CARIAS [id number] [facility] 2023-03-18 00:00:00 2023-03-18 00:00:00 Outpatient HUNDL, OSMAN CARIAS [id number] [facility] 2023-03-15 00:00:00 2023-03-15 00:00:00 Outpatient HUNDL, OSMAN CARIAS [id number] [facility] 2023-03-13 00:00:00 2023-03-13 00:00:00 Outpatient HUNDL, OSMAN CARIAS [id number] [facility] 2023-02-19 10:25:00 2023-02-19 10:25:00 Outpatient LAB90 SRI CARIAS [id number] [facility] 2023-02-19 09:30:00 2023-02-19 09:30:00 Outpatient HUNDL, OSMAN CARIAS [id number] [facility] 2023-02-12 00:00:00 2023-02-12 00:00:00 Outpatient HUNDL, OSMAN CARIAS [id number] [facility] 2023-02-02 00:00:00 2023-02-02 00:00:00 Outpatient HUNDL, OSMAN CARIAS [id number] [facility] 2023-01-28 00:00:00 2023-01-28 00:00:00 Outpatient HUNDL, OSMAN CARIAS [id number] [facility] 2023-01-21 08:30:00 2023-01-21 08:30:00 Outpatient HUNDL, OSMAN CARISA [id number] [facility] 00:00:00 2023-01-11 00:00:00 Outpatient HUNDL, OSMAN CARIAS [id number] [facility] 2022-12-24 00:00:00 2022-12-24 00:00:00 Outpatient HUNDL, OSMAN CARIAS [id number] [facility] 2022-12-10 00:00:00 2022-12-10 00:00:00 Outpatient HUNDL, OSMAN CARI[facility] [id number] [facility]-22 00:00:00 2022-11-22 00:00:00 Outpatient HUNDL, OSMAN CARIAS [id number] [facility] 2022-11-21 00:00:00 2022-11-21 00:00:00 Outpatient MD SRI FELICIANO [id number] [facility]22-[facility]-20 16:35:00 2022-11-20 16:35:00 Outpatient LAB90 SRI CARIAS [id number] [facility] 2022-11-20 09:00:00 2022-11-20 09:00:00 Outpatient HUNDL, OSMAN CARIAS [id number] [facility] 2022-11-15 00:00:00 2022-11-15 00:00:00 Outpatient MD SRI FELICIANO [id number] [facility] 2022-11-12 00:00:00 2022-11-12 00:00:00 Outpatient ZOHREH OSMAN CARIAS [id number] [facility] 2022-10-29 00:00:00 2022-10-29 00:00:00 Outpatient ZOHREH OSMAN CARIAS [id number] [facility] 2022-10-28 00:00:00 2022-10-28 00:00:00 Outpatient ZOHREH OSMAN CARIAS [id number] [facility] 2022-10-24 09:10:00 2022-10-24 09:10:00 Outpatient VISHAL CAR[facility] [id number] [facility] 2022-10-24 00:00:00 2022-10-24 00:00:00 Outpatient MD SRI FELICIANO [id number] [facility] 2022-10-23 15:30:00 2022-10-23 15:30:00 Outpatient OSMAN BRUNER [id number] [facility] 2022-10-04 00:00:00 2022-10-04 00:00:00 Outpatient MD SRI FELICIANO [id number] [facility] 2022-09-25 09:30:00 2022-09-25 09:30:00 Outpatient ELKE GRIFFIN [id number] [facility] 2022-09-19 13:00:00 2022-09-19 13:00:00 Outpatient YOSEPH ROGERS [id number] [facility] 2022-09-18 00:00:00 2022-09-18 00:00:00 Outpatient MD SRI FELICIANO [id number] [facility] [place] 2022-09-10 00:00:00 2022-09-10 00:00:00 Out[id number] [facility]00 2022-09-10 00:00:00 Outpatient JENNIFERElizabeth OSMAN SRI CARIAS [id number] [facility] 2022-09-05 00:00:00 2022-09-05 00:00:00 Outpatient MD SRI FELICIANO [id number] [facility] 2022-08-17 08:00:00 2022-08-17 08:00:00 Outpatient JASMYNERANDEE SRI CARIAS [id number] [facility] 2022-08-17 00:00:00 2022-08-17 00:00:00 Outpatient JENNIFERElizabeth OSMAN CARIAS [id number] [facility] 2022-08-16 00:00:00 2022-08-16 00:00:00 Outpatient MD SRI FELICIANO [id number] [facility] 2022-08-15 13:45:00 2022-08-15 13:45:00 Outpatient FLOR WRIGHT [id number] [facility] 2022-08-10 08:00:00 2022-08-10 08:00:00 Outpatient JENNIFERElizabeth OMSAN SRI CARIAS [id number] [facility] 2022-08-08 08:00:00 2022-08-08 08:00:00 Outpatient ZOHREH OSMAN CARIAS [id number] [facility] 2022-07-31 15:00:00 2022-07-31 15:00:00 Outpatient ELKE GRIFFIN [id number] [facility] 2022-07-31 00:00:00 2022-07-31 00:00:00 Outpatient SRI CARIAS [id number] [facility] 2022-07-28 00:00:00 2022-07-28 00:00:00 Outpatient XANDER STAPLES [id number] [facility] 2022-07-10 00:00:00 2022-07-10 00:00:00 Outpatient BARRY DEE [id number] [facility] 2022-06-08 00:00:00 2022-06-08 00:00:00 Outpatient BARRY DEE [id number] [facility] 2022-06-02 00:00:00 2022-06-02 00:00:00 Outpatient MD SRI FELICIANO [id number] [facility] 2022-05-08 09:40:00 2022-05-08 09:40:00 Outpatient LAB90 SRI CARIAS [id number] [facility] 2022-05-08 08:45:00 2022-05-08 08:45:00 Outpatient BARRY DEE [id number] [facility] 2022-03-16 11:00:00 2022-03-16 11:00:00 Outpatient ANAIS PEREZ [facility] [id number] [facility] 2022-03-16 00:00:00 2022-03-16 00:00:00 Orders Only Doctor Unassigned, [place] [facility] 1..840.114 [id number] [facility] 2022-03-15 08:30:00 2022-03-15 08:30:00 Outpatient ANAIS PEREZ [facility] [id number] [facility] 2022-02-15 09:00:00 2022-02-15 09:27:39 Office Visit Anais [facility] 1..840.114 [id number] [facility] 2022-02-15 09:00:00 2022-02-15 09:27:39 Outpatient R ANAIS MICHAELS [facility] [id number] [facility]
[2024-01-25] MEDS ORDERED: HYDROCODONE/APAP 7.5/325 MG TAB ONE (11:37)
--- NOTE | 2024-01-25 12:08 | RAD REPORT ---
EXAM: CT brain without contrast HISTORY: TRAUMA COMPARISON: None TECHNIQUE: Multiple contiguous axial images were obtained and a CT of the brain without contrast. Sag ittal and coronal reformats were performed. One or more of the following dose reduction techniques were used: Automated exposure control, adjust ment of the mA and/or kV according to patient size, and/or iterative reconstruction. FINDINGS: No evidence of hydrocephalus, intracranial hemorrhage, or extra-axial fluid collection. The brain is normal in morphology. No evidence of midline shift or areas of brain edema. The calvarium is intact. The visualized paranasal sinuses and mastoid air cells are essentially clear . IMPRESSION: No evidence of acute intracranial abnormality. EXAM: CT of the cervical spine without contrast HISTORY: Neck pain, injury TRAUMA TECHNIQUE: Multiple contiguous axial images were obtained in a CT of the cervical spine without contr ast. Sagittal and coronal reformats were performed. FINDINGS: Mild wedging of the anterior lower cervical vertebral bodies. 2 mm degenerative anterolisth esis of C3 on 4. Disc thinning with small posterior osteophyte noted at C4-5, C5-6. No evidence of acute fracture or subluxation.. No prevertebral soft tissue swelling is seen. The posterior facets are well aligned. Normal alignment of the skull base with the cervical spine is seen. Bilateral carotid atherosclerosis. The lung apices are unremarkable. IMPRESSION: No evidence of acute osseous abnormality of the cervical spine. Mild degenerative anterolisthesis C3 on 4. Moderate mid and lower cervical degenerative changes.
--- NOTE | 2024-01-25 12:15 | RAD REPORT ---
EXAM: CT CHEST, ABDOMEN AND PELVIS WITHOUT CONTRAST CLINICAL INDICATION: TRAUMA TECHNIQUE: CT chest, abdomen and pelvis was performed without contrast, as per department protocol. A xial, sagittal and coronal reconstructions were obtained. One or more of the following dose reduction techniques were used: Automated exposure control, adjustment of the mA and/or kV according to patient size, and/or iterative reconstruction. Unless otherwise specified, incidental findings do not require dedicated imaging follow-up. Examination is limited by the lack of intravenous contrast material. COMPARISON: No prior exam. FINDINGS: LUNGS: No evidence of airspace or interstitial process. No nodules. PLEURA: No pleural effusion. No pneumothorax. MEDIASTINUM AND LYMPH NODES: No mediastinal mass or fluid collection. Normal size mediastinal, hilar, and axillary lymph nodes. OSSEOUS STRUCTURES AND CHEST WALL: Intact. LIVER: Normal in size and contour. No focal lesion or biliary dilatation. Gallstones are present in t he gallbladder. PANCREAS: No mass, ductal dilation, or kaitlyn-pancreatic fluid. SPLEEN: Normal size. No focal lesion. ADRENALS: Normal; no mass. KIDNEYS: Normal size and contour. No hydronephrosis. URINARY BLADDER: Normal contour. GASTROINTESTINAL TRACT: No bowel obstruction, free air, significant free fluid or abscess. Sigmoid diverticulosis coli without diverticulitis. APPENDIX: Normal appendix. LYMPH NODES: No lymphadenopathy. MUSCULOSKELETAL: No acute or suspicious osseous abnormality. Mild lumbosacral degenerative changes. OTHER: IMPRESSION: No acute or significant abnormalities seen in the chest, abdomen or pelvis. Gallstones.
--- NOTE | 2024-01-25 12:22 | RAD REPORT ---
EXAMINATION: XR LEFT ANKLE CLINICAL INDICATION: Female, 63 years old. PAIN TECHNIQUE: 3 view radiograph of the left ankle were obtained. COMPARISON: No prior exam. FINDINGS: No bone or joint abnormality seen. Small calcaneal spurs.
--- NOTE | 2024-01-25 12:22 | RAD REPORT ---
EXAMINATION: XR RIGHT ANKLE CLINICAL INDICATION: . PAIN TECHNIQUE:Two view radiograph of the right ankle were obtained. COMPARISON: No prior exam. FINDINGS: No bone or joint abnormality detected. Small to moderate plantar calcaneal spur.
--- NOTE | 2024-01-25 12:23 | RAD REPORT ---
EXAMINATION: XR RIGHT WRIST CLINICAL INDICATION: PAIN RIGHT TECHNIQUE: Multiple projections of the right wrist were obtained. COMPARISON: No prior exam. FINDINGS: Mild dorsal soft tissue swelling. No acute fracture or dislocation.
--- NOTE | 2024-01-25 12:53 | EDPHYS ---
Physician Documentation [facility] Name: Mary Lacy Age: 63 yrs Sex: Female : 1960 Arrival Date: 01/25/2024 Time: 11:05 Bed 3 Private MD: ED Physician Cory Dye HPI: 01/24 11:31 This 63 yrs old Female presents to ER via Ambulatory with complaints of Fell off 12 ft sb4 roof. 11:32 Details of fall: The patient fell from a height, from a ladder, but was slowed somewhat sb4 by hitting ladder rungs. Onset: The symptoms/episode began/occurred just prior to arrival. patient slipped on the top of a ladder, fell down it, injury her head, right wrist, bilateral ankles, lower back, hip. is able to walk, no loss of consciousness, no blood thinners, has no neurologic deficits. Historical: - Allergies: 11:12 No Known Allergies; iw - PMHx: 11:12 Hypertension; Diabetes mellitus; iw - PSHx: 11:12 None; iw - Immunization history:: Adult Immunizations Adult Immunizations up to date. - Infectious Disease History:: Denies. - Social history:: Smoking status: Patient denies any tobacco usage or history of. ROS: 11:32 Constitutional: Negative for fever, chills, and weight loss, sb4 11:32 MS/extremity: Positive for injury or acute deformity, pain, of the right wrist, 11:32 Skin: Positive for abrasion(s), of the right leg and left leg, 11:32 Neuro: Positive for dizziness, headache, 11:32 All other systems are negative, Exam: 11:34 Constitutional: This is a well developed, well nourished patient who is awake, alert, sb4 and in no acute distress. Head/Face: Normocephalic, atraumatic. Eyes: Extra-ocular motions intact. Periorbital areas with no swelling, redness, or edema. ENT: Mucous membranes moist. Cardiovascular: Regular rate and rhythm with a normal S1 and S2. Respiratory: No increased work of breathing, no retractions or nasal flaring. Abdomen/GI: Soft, non-tender, no distension. 11:34 Eyes: Pupils: equal, round, and reactive to light and accomodation, 11:34 Neck: C-spine: Nexus Criteria: Nexus criteria: no cervical midline tenderness, patient is not intoxicated, mental status is normal, no focal/neurologic deficits, and no painful distracting injuries are present, 11:34 Skin: injury, abrasion(s), small abrasion noted, of the left and right shins, Vital Signs: 11:10 BP 172 / 103; Pulse 72; Resp 16; Temp 98.2; Pulse Ox 100% on R/A; Weight 68.04 kg; iw Height 5 ft. 3 in. ; Pain 7/10; 13:11 BP 169 / 85; Pulse 77; Resp 16; Pulse Ox 100% ; bp 11:10 Body Mass Index 26.57 (68.04 kg, 160.02 cm) iw 11:10 Pain Scale: Adult iw Trauma Score (Adult): 11:35 Eye Response: spontaneous(1); Verbal Response: oriented(1); Motor Response: obeys sb4 commands(2); Systolic BP: > 89 mm Hg(4); Respiratory Rate: 10 to 29 per min(4); Bosworth Score: 15; Trauma Score: 12 MDM: 11:23 Medical Screening Exam initiated sb4 12:50 Data reviewed: vital signs, nurses notes, radiologic studies, and as a result, I will sb4 discharge patient. Counseling: I had a detailed discussion with the patient and/or guardian regarding the historical points, exam findings, and any diagnostic results supporting the discharge/admit diagnosis, radiology results, the need for outpatient follow up, for definitive care, to return to the emergency department if symptoms worsen or persist or if there are any questions or concerns that arise at home. 01/24 11:30 Order name: CT Chest Abdomen Pelvis W/O Contrast; Complete Time: 12:16 sb4 01/24 11:30 Order name: Wrist Right 3 View XRAY; Complete Time: 12:29 sb4 01/24 11:30 Order name: Ankle Left 3 View XRAY; Complete Time: 12:29 sb4 01/24 11:30 Order name: Ankle Right 3 View XRAY; Complete Time: 12:29 sb4 01/24 11:46 Order name: Head C Spine Mpr Wo Con; Complete Time: 12:15 EDMS Administered Medications: 11:39 Drug: Hydrocodone-Acetaminophen PO (7.5 mg-325 mg) 1 tabs PO once Route: PO; bp 12:48 Follow up: Response: No adverse reaction bp Disposition Summary: 01/25/24 12:52 Discharge Ordered Notes: Location: Home sb4 Problem: new sb4 Symptoms: have improved sb4 Condition: Stable sb4 Diagnosis - Fall from ladder sb4 - Other specified sprain of right wrist, initial encounter sb4 Followup: sb4 - With: Emergency Department - When: As needed - Reason: Trouble breathing, Worsening of condition Discharge Instructions: - Discharge Summary Sheet sb4 - Abrasion sb4 - Musculoskeletal Pain sb4 - Wrist Sprain, Adult sb4 Forms: - Work release form sb4 - Patient Portal Instructions sb4 - Leadership Thank You Letter sb4 Prescriptions: - Ibuprofen 800 mg Oral Tablet - take 1 tablet ORAL route every 8 hours As needed take with food; 30 tablet; sb4 Refills: 0, Product Selection Permitted - Cyclobenzaprine 10 mg Oral Tablet - take 1 tablet ORAL route every 8 hours As needed; 30 tablet; Refills: 0, sb4 Product Selection Permitted Signatures: Dispatcher [employer] Viry Caballero RN RN iw Peltier, Brian, RN RN bp Brown, Sophia, PA-C PA-C sb4 Corrections: (The following items were deleted from the chart) 11:30 11:24 Misc. Order ordered. sb4 sb4 11: 11:31 Wrist Right 3 View+RAD.RAD.BRZ ordered. EDMS EDMS 11:31 11:31 Ankle Left 3 View+RAD.RAD.BRZ ordered. EDMS EDMS 11:31 11:31 Ankle Right 3 View+RAD.RAD.BRZ ordered. EDMS EDMS 11:34 11:24 Head C Spine MPR Wo Con+CT.RAD.BRZ ordered. EDMS EDMS
--- NOTE | 2024-01-25 12:53 | ER ---
Nurse's Notes [facility] Name: Mary Lacy Age: 63 yrs Sex: Female : 1960 Arrival Date: 01/25/2024 Time: 11:05 Bed 3 Private MD: Diagnosis: Fall from ladder;Other specified sprain of right wrist, initial encounter Presentation: 01/24 11:10 Chief complaint: Patient states: fell off the roof, she was fixing a tarp, the ladder iw side out from under , she went straight down, hit left hip and head on rail and porch , no LOC, now has pain to left back, hip and neck area. Coronavirus screen: At this time, the client does not indicate any symptoms associated with coronavirus-19. Ebola Screen: No symptoms or risks identified at this time. Initial Sepsis Screen: Does the patient meet any 2 criteria? No. Patient's initial sepsis screen is negative. Does the patient have a suspected source of infection? No. Patient's initial sepsis screen is negative. Risk Assessment: Do you want to hurt yourself or someone else? Patient reports no desire to harm self or others. Onset of symptoms was January 25, 2024. 11:10 Method Of Arrival: Ambulatory iw 11:10 Acuity: IBIS 3 iw Triage Assessment: 11:15 General: Appears in no apparent distress. uncomfortable, Behavior is calm, cooperative, bp appropriate for age. Pain: Complains of pain in left leg and right leg and right arm and right wrist. EENT: No deficits noted. Neuro: No deficits noted. Cardiovascular: No deficits noted. Respiratory: No deficits noted. GI: No signs and/or symptoms were reported involving the gastrointestinal system. : No signs and/or symptoms were reported regarding the genitourinary system. Derm: No deficits noted. Musculoskeletal: Circulation, motion, and sensation intact. Range of motion: intact in all extremities. Injury Description: Bruise sustained to left leg and right leg and right arm. Historical: - Allergies: 11:12 No Known Allergies; iw - PMHx: 11:12 Hypertension; Diabetes mellitus; iw - PSHx: 11:12 None; iw - Immunization history:: Adult Immunizations Adult Immunizations up to date. - Infectious Disease History:: Denies. - Social history:: Smoking status: Patient denies any tobacco usage or history of. Screenin:[address] [facility] ED Fall Risk Assessment (Adult) History of falling in the last 3 months, bp including since admission Yes- single mechanical fall (1 pt) Confusion or Disorientation No (0 pts) Intoxicated or Sedated No (0 pts) Impaired Gait No (0 pts) Mobility Assist Device Used No (0 pt) Altered Elimination No (0 pt) Score/Fall Risk Level 0 - 2 = Low Risk Oriented to surroundings. Abuse screen: Denies threats or abuse. Denies injuries from another. Nutritional screening: No deficits noted. Tuberculosis screening: No symptoms or risk factors identified. Assessment: 11:15 General: Appears in no apparent distress. uncomfortable, Behavior is calm, cooperative, bp appropriate for age. Vital Signs: 11:10 BP 172 / 103; Pulse 72; Resp 16; Temp 98.2; Pulse Ox 100% on R/A; Weight 68.04 kg; iw Height 5 ft. 3 in. ; Pain 7/10; 13:11 BP 169 / 85; Pulse 77; Resp 16; Pulse Ox 100% ; bp 11:10 Body Mass Index 26.57 (68.04 kg, 160.02 cm) iw 11:10 Pain Scale: Adult iw Trauma Score (Adult): 11:35 Eye Response: spontaneous(1); Verbal Response: oriented(1); Motor Response: obeys sb4 commands(2); Systolic BP: > 89 mm Hg(4); Respiratory Rate: 10 to 29 per min(4); Greyson Score: 15; Trauma Score: 12 ED Course: 11:07 Patient arrived in ED. mr 11:12 Triage completed. iw 11:12 Arm band placed on. iw 11:15 Patient has correct armband on for positive identification. bp 11:17 J Luis Covington, RN is Primary Nurse. bp 11:23 Kaylee Larson PA-C is PHCP. sb4 11:23 Cory Dye MD is Attending Physician. sb4 11:56 CT Chest Abdomen Pelvis W/O Contrast In Process Unspecified. EDMS 11:56 Head C Spine Mpr Wo Con In Process Unspecified. EDMS 12:08 Wrist Right 3 View XRAY In Process Unspecified. EDMS 12:08 Ankle Left 3 View XRAY In Process Unspecified. EDMS 12:08 Ankle Right 3 View XRAY In Process Unspecified. EDMS 13:11 Provided Education on: NA. bp 13:11 No provider procedures requiring assistance completed. Patient did not have IV access bp during this emergency room visit. Administered Medications: 11:39 Drug: Hydrocodone-Acetaminophen PO (7.5 mg-325 mg) 1 tabs PO once Route: PO; bp 12:48 Follow up: Response: No adverse reaction bp Medication: 11:15 VIS not applicable for this client. bp Outcome: 12:52 Discharge ordered by MD. claudio 13:11 Discharged to home ambulatory, with family, bp 13:11 Condition: stable 13:11 Discharge instructions given to patient, Instructed on discharge instructions, follow up and referral plans. medication usage, Demonstrated understanding of instructions, follow-up care, medications, Prescriptions given X 2, 13:12 Patient left the ED. bp Signatures: Dispatcher [employer] EDMO Kat Gonzalez, Reg Reg mr Viry Dacosta, J Luis Salaazr RN, RN RN bp Brown, Sophia, PA-C PA-C sb4
[2024-01-25 13:36] VITALS: TEMP 98.2; O2SAT 100
[2024-01-25 13:37] VITALS: BP 169/85
== END 2024-01-25 13:12 | disposition home or self-care (01) ==
LOC: ER 11:05
DX: S63.591A Other specified sprain of right wrist, initial encounter (principal); S80.812A Abrasion, left lower leg, initial encounter; S80.811A Abrasion, right lower leg, initial encounter; W11.XXXA Fall on and from ladder, initial encounter
CPT/HCPCS: 70450; 71250; 72125; 74176; 99283